=== PATIENT | male | born 1955 | race African-American/Black ===

== ENCOUNTER 2018-07-22 14:45 | Inpatient (IN) | payer OTHER, SELFPAY ==
--- NOTE | 2018-07-22 15:32 | RAD ---
Chest one view HISTORY: Chest pain. Comparison 11/07/2017. FINDINGS: Cardiac silhouette is magnified by projection. Pulmonary vasculature is unremarkable. Media stinum is. No lobar consolidation or evidence of pneumothorax. child monitor leads overlie the chest. IMPRESSION: No active cardiac abnormalities are demonstrated.
[2018-07-22 15:40] LABS: #Basophils 0.1 thou/uL (0.0-0.2); #Eosinphils 0.2 thou/uL (0.0-0.7); #Lymphocytes 2.1 thou/uL (1.20-3.40); #Monocytes 0.8 thou/uL (0.11-0.59); #Neutrophils 7.2 thou/uL (1.40-6.50); %Basophils 0.9 % (0.0-1.0); %Eosinophils 1.8 % (0.0-10.0); %Neutrophils 69.3 % (42.0-75.0); Hemoglobin 8.8 g/dL (14.0-18.0); Mean Corpuscular HGB CONC 32.8 g/dL (32.0-36.0); Mean Corpuscular Hemoglobin 28.7 pg (27.0-31.0); Mean Corpuscular Volume 87.6 fL (78.0-98.0); Mean Platelet Volume 8.7 fL (7.4-10.4); Platelet Count 182 thou/uL (130-400); RBC Distribution Width 19.8 % (11.5-14.5); Red Blood Cell (RBC) Count 3.08 mill/uL (4.70-6.10); White Blood Cell (WBC) Count 10.4 thou/uL (4.8-10.8)
[2018-07-22 15:54] LABS: ALT (SGPT) 11 U/L (8-55); AST (SGOT) 15 U/L (5-34); Albumin 3.9 g/dL (3.4-4.8); Alkaline Phosphatase 45 U/L (40-150); Anion Gap 16 mmol/L (10-20); Anisocytosis SLIGHT = 6-15 cells (100X) (0-5/hpf); BUN (Urea Nitrogen) 74 mg/dL (8.4-25.7); Bilirubin, Total 0.6 mg/dL (0.2-1.2); CK (CPK) 98 U/L (30-200); Calc. Creatinine Clearance 0 mL/min (70-130); Calcium 9.1 mg/dL (7.8-10.44); Carbon Dioxide 18 mmol/L (23-31); Chloride 110 mmol/L (98-107); Estimated GFR-MDRD 37; Globulin 2.3 g/dL (2.4-3.5); Glucose 129 mg/dL (80-115); MDiff Complete? YES; Platelet Morphology Comment Appears Adequate; Polychromasia SLIGHT = 2-3 cells (100X) (0-2/hpf); Potassium 4.4 mmol/L (3.5-5.1); Protein, Total 6.2 g/dL (5.8-8.1); Sodium 140 mmol/L (136-145)
[2018-07-22] MEDS ORDERED: Pantoprazole 40 MG VIAL ONE (17:00)
[2018-07-22 17:20] LABS: INR-International Normal Ratio 1.1; PTT 29.5 SEC (22.9-36.1)
[2018-07-22 17:44] LABS: Iron 96 ug/dL (65-175); Iron Binding Capacity, Total 304 mcg/dL (261-462)
[2018-07-22] MEDS ORDERED: Acetaminophen 325 MG TAB PO PRN (17:47)
[2018-07-22] MEDS ORDERED: Acetaminophen 650 MG Suppository PR PRN (17:47)
[2018-07-22] MEDS ORDERED: Bisacodyl 5 MG TAB PO PRN (17:47)
[2018-07-22] MEDS ORDERED: Sodium Chloride 0.9% 1,000 ML IV SCH (18:00)
[2018-07-22] MEDS ORDERED: hydrALAZINE 20 MG/ML VIAL SLOW IVP PRN (18:10)
--- NOTE | 2018-07-22 18:31 | HP ---
PRIMARY CARE PROVIDER: Dr. Kelvin Key in [place], [place]. CHIEF COMPLAINT: Black stools. HISTORY OF PRESENT ILLNESS: Mr. Simpson is a pleasant 62-year-old gentleman, who was seen at [facility] on July 22, 2018. He was hospitalized at this facility from November 07 to [address]-elevation myocardial infarction treated with percutaneous transluminal coronary angioplasty and Aggrastat. He reports that he was doing well until 3 days ago. At that time, he started having nausea and vomiting. He reports multiple episodes of nausea, 1 or 2 episodes of vomiting and mostly retching. This continued over the next couple of days. Three days ago, he also started having black stools. He describes the stools as black and dry. He has been mostly drinking water over the last couple of days. He denies any current abdominal pain, but reports that he had some epigastric discomfort, which has since resolved. He also reports lightheadedness when he tries to stand up. He called 911 because of ongoing symptoms today. He reports that when the EMS got there, he started having retrosternal burning sensation. He describes it as 5/10 in intensity, nonradiating, not accompanied by shortness of breath, but accompanied by nausea and lightheadedness. It lasted approximately 20 minutes. It improved after he took 2 doses of nitroglycerin. REVIEW OF SYSTEMS: All other systems were reviewed and found to be negative. PAST MEDICAL HISTORY: Coronary artery disease, ST elevation myocardial infarction, hypertension, dyslipidemia, and nephrolithiasis. PAST SURGICAL HISTORY: PCI as described above. FAMILY HISTORY: No family history of coronary artery disease. SOCIAL HISTORY: The patient drinks 1 to 2 whiskey drinks a day. He denies any tobacco use or recreational drug use. ALLERGIES: NO KNOWN DRUG ALLERGIES. CURRENT MEDICATIONS: The patient is unable to recall the names of his medications. He reports that he is compliant with his medications, which at the time of discharge from the hospital included, 1. Aspirin 325 mg daily. 2. Plavix 75 mg daily. 3. Atorvastatin 80 mg daily. 4. Metoprolol ER 100 mg daily. 5. Nitroglycerin p.r.n. It is unclear if he is still taking Plavix. PHYSICAL EXAMINATION: GENERAL: On examination, Mr. Simpson is awake and alert, not in acute distress. VITAL SIGNS: Blood pressure is 136/86, pulse 67, respiratory rate 20, and oxygen saturation 99% on room air. He is afebrile. EYES: No scleral icterus. The patient has conjunctival pallor. ENT: Moist mucosal membranes. No oropharyngeal erythema or exudates. NECK: Supple and nontender. Trachea is midline. RESPIRATORY: Accessory muscles of breathing are not active. Chest wall movements are symmetric bilaterally. Lungs are clear to auscultation without wheeze, rhonchi, or crepitations. CARDIOVASCULAR: S1 and S2 are heard, regular. Peripheral pulses palpable. No carotid bruit. No pericardial rub. ABDOMEN: Soft, mild epigastric tenderness. No guarding or rigidity. Bowel sounds heard. No hepatomegaly. No splenomegaly. NEUROLOGIC: Cranial nerves 2 through 12 intact. Deep tendon reflexes 2+. MUSCULOSKELETAL: Power is 5/5 in all 4 extremities. SKIN: No rashes or subcutaneous nodules. LYMPHATIC: No cervical lymphadenopathy. PSYCHIATRIC: Normal mood and normal affect. The patient is oriented to person, place, and time. LABORATORY DATA: Mr. Simpson's labs and investigations were reviewed. I reviewed his electrocardiogram, which shows normal sinus rhythm and no ST changes to suggest an acute coronary syndrome. I also reviewed his chest x-ray, which does not show any pulmonary infiltrates. He has normal white count, normocytic anemia with hemoglobin of 8.8, last known hemoglobin of 14.8 on November 08, 2017, and normal platelet count. INR 1.1. Normal sodium, normal potassium, elevated blood urea nitrogen of 74, elevated creatinine of 2.17, and creatinine was 1.35 on November 09, 2017. Unremarkable liver profile. Normal iron, normal TIBC, and normal troponin I. ASSESSMENT AND PLAN: Mr. Simpson is a pleasant 62-year-old gentleman, who was seen at [facility] on July 22, 2018. His problem list includes: 1. Symptomatic anemia: Mr. Simpson is presenting with symptomatic anemia, most likely secondary to acute blood loss anemia from upper gastrointestinal bleed. He will be admitted to the hospital for further management. 2. Upper gastrointestinal bleed: The patient's hemoglobin and hematocrit will be checked. He will be started on a proton pump inhibitor drip. Gastroenterology Service will be consulted for opinion and help with management. 3. Acute on chronic kidney disease, stage 2. This could be prerenal, since he had a poor oral intake at home over the last few days. We will rehydrate intravenously and recheck renal function. 4. Chest pain: The patient's chest pain is atypical for coronary artery disease. He will be monitored on telemetry. If he has recurrence, we will initiate further workup. 5. Hypertension: We will resume the patient's home medications. Monitor vital signs and titrate antihypertensives as needed. 6. Dyslipidemia: We will continue statin. Many thanks for allowing me to participate in your patient's care. Please feel free to contact me with any questions or concerns. LEVEL OF RISK: High. LEVEL OF COMPLEXITY: High. Job ID: [id number]
[2018-07-22 18:40] LABS: Hemoglobin 9.1 g/dL (14.0-18.0)
[2018-07-22 19:08] LABS: Troponin I 0.015 ng/mL (< 0.028)
[2018-07-22] MEDS: Pantoprazole 80 MG in Sodium Chloride 0.9% 100 ML IVP SCH (20:11)
[2018-07-22 21:58] LABS: Troponin I 0.014 ng/mL (< 0.028)
[2018-07-22 23:14] VITALS: BMI 34.4
[2018-07-23 05:00] LABS: #Basophils 0.1 thou/uL (0.0-0.2); #Eosinphils 0.5 thou/uL (0.0-0.7); #Lymphocytes 3.2 thou/uL (1.20-3.40); #Monocytes 0.8 thou/uL (0.11-0.59); #Neutrophils 4.4 thou/uL (1.40-6.50); %Basophils 1.3 % (0.0-1.0); %Eosinophils 5.1 % (0.0-10.0); %Lymphocytes 35.6 % (21.0-51.0); %Monocytes 9.3 % (0.0-10.0); %Neutrophils 48.8 % (42.0-75.0); Hemoglobin 8.3 g/dL (14.0-18.0); Mean Corpuscular HGB CONC 32.6 g/dL (32.0-36.0); Mean Corpuscular Hemoglobin 29.6 pg (27.0-31.0); Mean Corpuscular Volume 90.6 fL (78.0-98.0); Mean Platelet Volume 8.6 fL (7.4-10.4); Platelet Count 195 thou/uL (130-400); RBC Distribution Width 20.1 % (11.5-14.5); Red Blood Cell (RBC) Count 2.82 mill/uL (4.70-6.10); White Blood Cell (WBC) Count 9.1 thou/uL (4.8-10.8)
[2018-07-23 05:17] LABS: Anion Gap 13 mmol/L (10-20); BUN (Urea Nitrogen) 64 mg/dL (8.4-25.7); Calc. Creatinine Clearance 53 mL/min (70-130); Calcium 9.1 mg/dL (7.8-10.44); Carbon Dioxide 19 mmol/L (23-31); Chloride 111 mmol/L (98-107); Estimated GFR-MDRD 38; Glucose 111 mg/dL (80-115); Potassium 4.4 mmol/L (3.5-5.1); Sodium 139 mmol/L (136-145)
[2018-07-23] MEDS: Pantoprazole 80 MG in Sodium Chloride 0.9% 100 ML IVP SCH ×2 (06:53→17:44)
--- NOTE | 2018-07-23 15:56 | PDOC.PN ---
- Subjective Encounter Start Date: 07/23/18 Encounter Start Time: 08:00 Pt seen for followup re: acute blood loss anemia. - Objective MAR Reviewed: Yes Vital Signs & Weight: Vital Signs (12 hours) Temp Pulse Resp BP Pulse Ox 07/23/18 12:27 97.8 F 82 16 123/51 L 96 07/23/18 08:00 97.8 F 67 16 108/64 99 Weight Weight 240 lb I&O: 07/22/18 07/23/18 07/24/18 06:59 06:59 06:59 Intake Total 480 Balance 480 Result Diagrams: 07/23/18 04:45 07/23/18 04:45 EKG Reviewed by me: Yes (Tele: NSR) Phys Exam - Physical Examination Obese HEENT: moist MMs, sclera anicteric, oral pharynx no lesions, 2+ tonsils Neck: no nodes, no JVD, supple, full ROM Respiratory: clear to auscultation bilateral Cardiovascular: RRR, no rub S1, S2 Gastrointestinal: soft, non-tender, no distention, positive bowel sounds Neurological: moves all 4 limbs Psychiatric: normal affect Dx/Plan (1) Acute blood loss anemia Code(s): D62 - ACUTE POSTHEMORRHAGIC ANEMIA Status: Acute Comment: secondary to UGIB (2) UGIB (upper gastrointestinal bleed) Code(s): K92.2 - GASTROINTESTINAL HEMORRHAGE, UNSPECIFIED Status: Acute Comment: hemoglobin stable. Continue PPI drip. Await GI consult. (3) Acute renal failure superimposed on stage 2 chronic kidney disease Code(s): N17.9 - ACUTE KIDNEY FAILURE, UNSPECIFIED; N18.2 - CHRONIC KIDNEY DISEASE, STAGE 2 (MILD) Status: Acute Comment: continue IV fluids (4) CAD (coronary artery disease) Code(s): I25.10 - ATHSCL HEART DISEASE OF [place] CORONARY ARTERY W/O ANG PCTRS Status: Chronic Comment: aspirin and Plavix on hold due to UGIB (5) HTN (hypertension) Code(s): I10 - ESSENTIAL (PRIMARY) HYPERTENSION Status: Chronic Comment: controlled - Plan * . Review of Systems - Review of Systems Constitutional: negative: fever, chills, sweats, weakness, malaise Cardiovascular: negative: chest pain, palpitations, orthopnea, paroxysmal nocturnal dyspnea, edema, light headedness Gastrointestinal: Melena. negative: Nausea, Vomiting, Abdominal Pain, Diarrhea , Constipation, Hematochezia Genitourinary: negative: Dysuria, Frequency, Incontinence, Hematuria, Retention Skin: negative: Rash, Lesions, [place], Bruising - Medications/Allergies Allergies/Adverse Reactions: Allergies Allergy/AdvReac Type Severity Reaction Status Date / Time No Known Allergies Allergy Unverified 11/07/17 04:41 Medications: Current Medications Acetaminophen (Tylenol) 650 mg PO Q4H PRN PRN Reason: Headache/Fever/Mild Pain (1-3) Acetaminophen (Tylenol) 650 mg NM Q4H PRN PRN Reason: Headache/Fever/Mild Pain (1-3) Bisacodyl (Dulcolax) 10 mg PO DAILYPRN PRN PRN Reason: Constipation Hydralazine HCl (Apresoline) 10 mg SLOW IVP Q6H PRN PRN Reason: SBP Greater Than 170 Pantoprazole Sodium 80 mg/ (Sodium Chloride) 100 mls @ 10 mls/hr IVP [facility] Last Admin: 07/23/18 06:53 Dose: 100 mls Sodium Chloride (Flush - Normal Saline) 10 ml IVF Q12HR [facility] Last Admin: 07/23/18 08:59 Dose: Not Given Sodium Chloride (Flush - Normal Saline) 10 ml IVF PRN PRN PRN Reason: Saline Flush
[2018-07-23] MEDS ORDERED: Nitroglycerin 0.4 MG TAB (25 Tab Bottle) SL PRN (15:57)
[2018-07-23] MEDS: Sodium Chloride 0.9% 1,000 ML IV SCH (16:57)
[2018-07-23] MEDS: Atorvastatin Calcium 40 MG TAB PO SCH (19:53)
[2018-07-24] MEDS: Pantoprazole 80 MG in Sodium Chloride 0.9% 100 ML IVP SCH (03:42)
[2018-07-24] MEDS: Sodium Chloride 0.9% 1,000 ML IV SCH ×2 (05:19→20:32)
[2018-07-24 05:45] LABS: #Basophils 0.1 thou/uL (0.0-0.2); #Eosinphils 0.5 thou/uL (0.0-0.7); #Lymphocytes 2.8 thou/uL (1.20-3.40); #Monocytes 0.9 thou/uL (0.11-0.59); #Neutrophils 5.2 thou/uL (1.40-6.50); %Basophils 0.8 % (0.0-1.0); %Eosinophils 5.2 % (0.0-10.0); %Lymphocytes 29.7 % (21.0-51.0); %Monocytes 9.2 % (0.0-10.0); %Neutrophils 55.1 % (42.0-75.0); Hemoglobin 7.1 g/dL (14.0-18.0); Mean Corpuscular Hemoglobin 29.5 pg (27.0-31.0); Mean Corpuscular Volume 89.5 fL (78.0-98.0); Mean Platelet Volume 8.9 fL (7.4-10.4); Platelet Count 179 thou/uL (130-400); RBC Distribution Width 20.1 % (11.5-14.5); Red Blood Cell (RBC) Count 2.42 mill/uL (4.70-6.10); White Blood Cell (WBC) Count 9.5 thou/uL (4.8-10.8)
[2018-07-24 06:02] LABS: Anion Gap 12 mmol/L (10-20); BUN (Urea Nitrogen) 46 mg/dL (8.4-25.7); Calc. Creatinine Clearance 53 mL/min (70-130); Calcium 8.7 mg/dL (7.8-10.44); Carbon Dioxide 23 mmol/L (23-31); Chloride 108 mmol/L (98-107); Estimated GFR-MDRD 38; Glucose 121 mg/dL (80-115); Potassium 4.2 mmol/L (3.5-5.1); Sodium 139 mmol/L (136-145)
[2018-07-24] MEDS ORDERED: Promethazine HCl 25 MG/ML VIAL SLOW IVP PRN (08:44)
[2018-07-24] MEDS ORDERED: Ondansetron HCl/PF 4 MG/2 ML Vial IVP PRN (08:44)
[2018-07-24] MEDS ORDERED: Promethazine HCl 25 MG/ML VIAL IM PRN (08:44)
--- NOTE | 2018-07-24 08:55 | CON ---
DATE OF CONSULTATION: 07/23/2018 REASON FOR CONSULTATION: GI bleeding, anemia due to blood loss. HISTORY OF PRESENT ILLNESS: Mr. Baldomero Simpson is a very pleasant 62-year-old male who has had a microinfarction in November of 2017. He underwent coronary angioplasty and was placed on aspirin and Plavix. This was done in November of 2017. The patient has done well since angioplasty. The patient has been placed on aspirin and Plavix after his angioplasty. The patient developed nausea, dysphagia, retching and vomiting with bleeding over 2 to 3 days ago. Subsequently started having black tarry stools 3 days ago. This stools were tarry. He had multiple loose stools. He also felt dizzy transiently. He has no abdominal pain. There is no prior history of peptic ulcer. He tells me six months ago, an episode of black tarry stool which lasted for 2 or 3 days, but he did not see a doctor for it. The stools became normal subsequently he totally ignored it. The patient has no prior history of peptic ulcer. He denies any indigestion, heartburn, dyspepsia, abdominal discomfort, etc. The patient was found to have anemia on admission. Blood count has been stable from admission, running around 8.3 and 8.2. The patient had one black tarry stool this morning. I saw him this morning around 11:30 and I saw him again office under 6:00 in the evening. He tells me he has had normal since one stool this morning. He is tolerating a diet. He has no relevant history. He has been on aspirin and Plavix since his angioplasty in November of 2017. The Plavix is on hold at the present time. The patient has had a colonoscopy several years ago and was told to be negative. He has normal bowel movements, and he has no prior history of any rectal bleeding, etc. He felt lightheaded and dizzy when he stood up at the time of admission. Since that time, he is actually ambulating in the room and is not feeling dizzy anymore. He has no relevant history. MEDICAL ILLNESSES: 1. Status post myocardial infarction in November of 2017, status angioplasty. 2. Hypertension. 3. Hyperlipidemia. 4. Nephrolithiasis. SURGERIES: 1. Angioplasty in the past. 2. History of colonoscopy several years ago. SOCIAL HISTORY: The patient drinks alcohol 1-2 two drinks every day. No history of smoking or any drug abuse. ALLERGIES: NONE. MEDICATIONS: Include: 1. Aspirin. 2. Plavix. 3. Atorvastatin. 4. Metoprolol. 5. Nitroglycerin p.r.n. FAMILY HISTORY: Unremarkable. No family history of cancer, stroke, or heart disease. REVIEW OF SYSTEMS: CONSTITUTIONAL: No history of weight loss, decreased energy level, and he has good exercise tolerance. No fever or any night sweats. HEENT: Head, no chronic headache, no TIA. No sclerae icterus. Eyes: No impaired vision. No diplopia. ENT unremarkable. NECK: No stiffness or pain. RESPIRATORY: No history of chronic coughing, hemoptysis, dyspnea. CARDIOVASCULAR: No chest pain, no palpitation. No dyspnea, orthopnea, or PND. GI: As in history of present illness. : No dysuria, hematuria or frequent urination. MUSCULOSKELETAL: Unremarkable. ENDOCRINE: Unremarkable. HEMATOLOGICAL: Unremarkable. NEUROPSYCHIATRY: Unremarkable. PHYSICAL EXAMINATION: GENERAL: The patient is a very pleasant male, appears very comfortable. He is awake, alert, oriented to time, place, and person. VITAL SIGNS: His pulse is 67, blood pressure 137/70. HEENT: Conjunctivae clear. NECK: Supple. No adenitis or . CARDIOVASCULAR : 1st and 2nd heart sounds normal. LUNGS: Clear to auscultation. ABDOMEN: Soft. Abdomen is nondistended. Abdomen is nontender. No organomegaly or masses. Bowel sounds normal. EXTREMITIES: No edema. LABORATORY DATA: On admission on 07/23/2018, WBC 10,400, hemoglobin 8.8, hematocrit 26.9. He has had did not change at present. Hemoglobin was 9.1 yesterday evening and today 8.3. Hematocrit is 25.6, platelet count 195,000, polymorphs 48, lymphocytes 35, monocytes 9. Serum chemistry, elevation of BUN most likely from bleeding. Sodium 140, potassium 4.4, chloride 110, bicarb 18, BUN is 74, dropping to 64 after hydration, creatinine is 2.17 dropping to 2.15, glucose 111. Liver function tests normal. Albumin is 3.9. IMPRESSION: 1. A 62-year-old male with black tarry stool, nausea, vomiting. No history of hematemesis. Since admission, he is stable. Blood pressure is stable and has had only one stool this morning and had normal stool. His blood count is holding up well. There is slight drop in blood count because of dehydration. 2. Elevated BUN and creatinine, mostly from the GI bleeding. He has lost some blood which can make the BUN go up. It is also positive for underlying chronic kidney disease. 3. Hypertension. 4. Hyperlipidemia. 5. Coronary artery disease status post angioplasty. RECOMMENDATIONS: 1. Continue IV PPI. 2. Hold Plavix. 3. EGD tomorrow morning as it appears he has stopped bleeding. I will plan for EGD tomorrow morning and make further recommendations. Job ID: [id number]
[2018-07-24] MEDS: Amlodipine 10 MG TAB PO SCH (11:08)
[2018-07-24] MEDS ORDERED: PROPOFOL 200 MG/20 ML VIAL ONE (15:23)
--- NOTE | 2018-07-24 16:06 | PDOC.PN ---
- Subjective Encounter Start Date: 07/24/18 Encounter Start Time: 16:04 Pt seen for followup re: GI bleed. Feels well, no complaints. - Objective Vital Signs & Weight: Vital Signs (12 hours) Temp Pulse Pulse Resp BP BP Pulse Ox 07/24/18 12:00 97.6 F 64 16 126/73 99 07/24/18 11:35 97.5 F L 70 16 123/68 97 07/24/18 11:08 68 07/24/18 10:20 68 18 142/83 H 100 07/24/18 07:19 98.1 F 76 14 119/59 L 95 Weight Weight 236 lb 2 oz I&O: 07/23/18 07/24/18 07/25/18 06:59 06:59 06:59 Intake Total 2680 240 Output Total 2200 Balance 480 240 Result Diagrams: 07/24/18 05:11 07/24/18 05:11 Phys Exam - Physical Examination Obesity HEENT: moist MMs Neck: supple Respiratory: clear to auscultation bilateral Cardiovascular: RRR Gastrointestinal: soft Neurological: moves all 4 limbs Psychiatric: normal affect Dx/Plan (1) Acute blood loss anemia Code(s): D62 - ACUTE POSTHEMORRHAGIC ANEMIA Status: Acute Comment: secondary to UGIB, s/p EGD today (2) UGIB (upper gastrointestinal bleed) Code(s): K92.2 - GASTROINTESTINAL HEMORRHAGE, UNSPECIFIED Status: Acute Comment: hemoglobin decreased today, transfuse one unit pRBC. (3) Acute renal failure superimposed on stage 2 chronic kidney disease Code(s): N17.9 - ACUTE KIDNEY FAILURE, UNSPECIFIED; N18.2 - CHRONIC KIDNEY DISEASE, STAGE 2 (MILD) Status: Acute Comment: continue IV fluids, recheck creatinine (4) CAD (coronary artery disease) Code(s): I25.10 - ATHSCL HEART DISEASE OF [place] CORONARY ARTERY W/O ANG PCTRS Status: Chronic Comment: aspirin and Plavix on hold (5) HTN (hypertension) Code(s): I10 - ESSENTIAL (PRIMARY) HYPERTENSION Status: Chronic Comment: controlled - Plan * . Review of Systems - Review of Systems Cardiovascular: negative: chest pain, palpitations, orthopnea, paroxysmal nocturnal dyspnea, edema, light headedness Gastrointestinal: negative: Nausea, Vomiting, Abdominal Pain, Diarrhea, Constipation, Melena, Hematochezia - Medications/Allergies Allergies/Adverse Reactions: Allergies Allergy/AdvReac Type Severity Reaction Status Date / Time No Known Allergies Allergy Unverified 11/07/17 04:41 Medications: Current Medications Acetaminophen (Tylenol) 650 mg PO Q4H PRN PRN Reason: Headache/Fever/Mild Pain (1-3) Acetaminophen (Tylenol) 650 mg [place] Q4H PRN PRN Reason: Headache/Fever/Mild Pain (1-3) Amlodipine Besylate (Norvasc) 10 mg PO DAILY [facility] Last Admin: 07/24/18 11:08 Dose: 10 mg Atorvastatin Calcium (Lipitor) 80 mg PO HS [facility] Last Admin: 07/23/18 19:53 Dose: 80 mg Bisacodyl (Dulcolax) 10 mg PO DAILYPRN PRN PRN Reason: Constipation Hydralazine HCl (Apresoline) 10 mg SLOW IVP Q6H PRN PRN Reason: SBP Greater Than 170 Sodium Chloride (Normal Saline 0.9%) 1,000 mls @ 70 mls/hr IV .[id number] [facility] Last Admin: 07/24/18 05:19 Dose: 1,000 mls Metoprolol Succinate (Toprol Xl) 100 mg PO DAILY [facility] Last Admin: 07/24/18 11:08 Dose: 100 mg Nitroglycerin (Nitrostat) 0.4 mg SL Q5MIN PRN PRN Reason: Chest Pain Pantoprazole Sodium (Protonix) 40 mg PO DAILY [facility] Sodium Chloride (Flush - Normal Saline) 10 ml IVF Q12HR [facility] Last Admin: 07/24/18 10:37 Dose: Not Given Sodium Chloride (Flush - Normal Saline) 10 ml IVF PRN PRN PRN Reason: Saline Flush
--- NOTE | 2018-07-24 16:37 | OP ---
DATE OF PROCEDURE: 07/24/2018 PROCEDURE PERFORMED: Esophagogastroduodenoscopy. PREOPERATIVE DIAGNOSES: A 62-year-old male with black tarry stool for 3 days, nausea, and dyspepsia. The patient is undergoing esophagogastroduodenoscopy. POSTOPERATIVE DIAGNOSES: 1. Normal esophageal mucosa and no esophagitis seen. 2. Large polypoid lesion of the gastric antrum with erythematous mucosa, nonbleeding, not biopsied due to the patient being on Plavix. 3. Antral gastritis with shallow ulceration. 4. Focal gastritis with erosion of the gastric body. 5. Normal duodenum. DESCRIPTION OF PROCEDURE: The patient was placed on his left lateral position and was given sedation by Anesthesia Department. A Pentax video gastroscope under direct vision was passed down the oropharynx to the GE junction into the stomach and subsequently into the descending duodenum. The esophageal mucosa appeared normal completely. No esophagitis seen. The GE junction had no lesion. Retroflexion failed to show any pathology in fundus and cardia. In the proximal gastric body, there was area of focal edema and erythema with erosion. No evidence of active bleeding seen. The gastric antrum showed a large sessile polypoid area with markedly erythematous mucosa. The GE junction appeared benign and not biopsied. There was antral gastritis and also shallow ulceration. The duodenal bulb and descending duodenum had no pathology. The stomach was decompressed and the scope was removed. RECOMMENDATIONS: 1. Heart healthy diet. 2. Follow up H and H. 3. Transfuse p.r.n. 4. The patient will probably need a repeat EGD in the near future after he can stop the Plavix for 5 days. We will also plan for a colonoscopy at same time. Job ID: [id number]
[2018-07-24] MEDS: Atorvastatin Calcium 40 MG TAB PO SCH (20:31)
[2018-07-25 08:19] LABS: Anion Gap 10 mmol/L (10-20); BUN (Urea Nitrogen) 28 mg/dL (8.4-25.7); Calc. Creatinine Clearance 57 mL/min (70-130); Calcium 8.9 mg/dL (7.8-10.44); Carbon Dioxide 24 mmol/L (23-31); Chloride 110 mmol/L (98-107); Estimated GFR-MDRD 42; Glucose 108 mg/dL (80-115); Potassium 4.4 mmol/L (3.5-5.1); Sodium 140 mmol/L (136-145)
[2018-07-25 08:27] LABS: #Basophils 0.1 thou/uL (0.0-0.2); #Eosinphils 0.5 thou/uL (0.0-0.7); #Lymphocytes 2.9 thou/uL (1.20-3.40); #Monocytes 0.8 thou/uL (0.11-0.59); #Neutrophils 4.2 thou/uL (1.40-6.50); %Eosinophils 5.7 % (0.0-10.0); %Lymphocytes 34.1 % (21.0-51.0); %Monocytes 8.9 % (0.0-10.0); %Neutrophils 50.4 % (42.0-75.0); Hemoglobin 8.6 g/dL (14.0-18.0); Mean Corpuscular HGB CONC 33.6 g/dL (32.0-36.0); Mean Corpuscular Volume 92.3 fL (78.0-98.0); Mean Platelet Volume 8.6 fL (7.4-10.4); Platelet Count 188 thou/uL (130-400); RBC Distribution Width 19.9 % (11.5-14.5); Red Blood Cell (RBC) Count 2.78 mill/uL (4.70-6.10); White Blood Cell (WBC) Count 8.4 thou/uL (4.8-10.8)
[2018-07-25] MEDS: Amlodipine 10 MG TAB PO SCH (08:55)
[2018-07-25] MEDS: Sodium Chloride 0.9% 1,000 ML IV SCH (10:28)
--- NOTE | 2018-07-25 11:35 | PDOC.PN ---
- Subjective Encounter Start Date: 07/25/18 Encounter Start Time: 10:40 Subjective: no abd pain or bleeding per rectum -: no sob or chest pain - Objective MAR Reviewed: Yes Vital Signs & Weight: Vital Signs (12 hours) Temp Pulse Resp BP BP Pulse Ox 07/25/18 08:55 56 L 107/57 L 07/25/18 08:50 97.9 F 65 16 107/57 L 97 07/25/18 03:50 97.7 F 59 L 16 101/50 L 99 Weight Weight 236 lb I&O: 07/24/18 07/25/18 07/26/18 06:59 06:59 06:59 Intake Total 2680 3170 Output Total 2200 2125 Balance 480 1045 Result Diagrams: 07/25/18 07:45 07/25/18 07:45 Phys Exam - Physical Examination HEENT: PERRLA, moist MMs Neck: no JVD, supple Respiratory: no wheezing, no rales Cardiovascular: RRR, no significant murmur Gastrointestinal: soft, non-tender, positive bowel sounds Musculoskeletal: no edema, pulses present Neurological: non-focal, moves all 4 limbs Psychiatric: normal affect, A&O x 3 Dx/Plan (1) UGIB (upper gastrointestinal bleed) Code(s): K92.2 - GASTROINTESTINAL HEMORRHAGE, UNSPECIFIED Status: Acute (2) Acute blood loss anemia Code(s): D62 - ACUTE POSTHEMORRHAGIC ANEMIA Status: Acute Comment: secondary to UGIB? (3) MARLEEN (acute kidney injury) Code(s): N17.9 - ACUTE KIDNEY FAILURE, UNSPECIFIED Status: Acute (4) CKD (chronic kidney disease) stage 3, GFR 30-59 ml/min Code(s): N18.3 - CHRONIC KIDNEY DISEASE, STAGE 3 (MODERATE) Status: Chronic (5) CAD (coronary artery disease) Code(s): I25.10 - ATHSCL HEART DISEASE OF [place] CORONARY ARTERY W/O ANG PCTRS Status: Chronic Qualifiers: Coronary Disease-Associated Artery/Lesion type: [place] artery [place] vs. transplanted heart: [place] heart Associated angina: without angina Qualified Code(s): I25.10 - Atherosclerotic heart disease of [place] coronary artery without angina pectoris Comment: aspirin and Plavix on hold (6) HTN (hypertension) Code(s): I10 - ESSENTIAL (PRIMARY) HYPERTENSION Status: Chronic Qualifiers: Hypertension type: essential hypertension Qualified Code(s): I10 - Essential (primary) hypertension Comment: controlled - Plan h/h is stable -: renal function is slowly trending down to baseline -: will d/w , likely dc home, to have repeat egd in 1 wk -: continue protonix, asp, norvasc, toprol xl -: hold plavix till repeat egd, has large polypoid mass in antrum * . Review of Systems - Medications/Allergies Allergies/Adverse Reactions: Allergies Allergy/AdvReac Type Severity Reaction Status Date / Time No Known Allergies Allergy Unverified 11/07/17 04:41 Medications: Current Medications Acetaminophen (Tylenol) 650 mg PO Q4H PRN PRN Reason: Headache/Fever/Mild Pain (1-3) Acetaminophen (Tylenol) 650 mg [place] Q4H PRN PRN Reason: Headache/Fever/Mild Pain (1-3) Amlodipine Besylate (Norvasc) 10 mg PO DAILY [facility] Last Admin: 07/25/18 08:55 Dose: Not Given Atorvastatin Calcium (Lipitor) 80 mg PO HS [facility] Last Admin: 07/24/18 20:31 Dose: 80 mg Bisacodyl (Dulcolax) 10 mg PO DAILYPRN PRN PRN Reason: Constipation Hydralazine HCl (Apresoline) 10 mg SLOW IVP Q6H PRN PRN Reason: SBP Greater Than 170 Metoprolol Succinate (Toprol Xl) 100 mg PO DAILY [facility] Last Admin: 07/25/18 08:55 Dose: Not Given Nitroglycerin (Nitrostat) 0.4 mg SL Q5MIN PRN PRN Reason: Chest Pain Pantoprazole Sodium (Protonix) 40 mg PO DAILY [facility] Last Admin: 07/25/18 08:53 Dose: 40 mg Sodium Chloride (Flush - Normal Saline) 10 ml IVF Q12HR [facility] Last Admin: 07/25/18 08:55 Dose: Not Given Sodium Chloride (Flush - Normal Saline) 10 ml IVF PRN PRN PRN Reason: Saline Flush
[2018-07-25 12:16] VITALS: BP 124/58; TEMP 98.2
--- NOTE | 2018-07-25 14:19 | DIS ---
DATE OF ADMISSION: 07/22/2018 DATE OF DISCHARGE: 07/25/2018 PRIMARY DISCHARGE DIAGNOSES: Gastrointestinal bleed, likely upper acute blood loss anemia; acute kidney injury; history of chronic kidney disease, stage 3; coronary artery disease; hypertension. PROCEDURES DONE DURING HOSPITALIZATION: EGD done on 07/24/2018, by Dr. Luna, showed large polypoid lesion of the gastric antrum with erythematous mucosa, nonbleeding. This was not biopsied due to patient being on Plavix. Antral gastritis with shallow ulceration. Focal gastritis with erosion of the gastric body, normal duodenum. LABORATORY DATA: Discharge hemoglobin and hematocrit 8.6 and 25, platelet count 188. INR 1.1. Admitting BUN was 74, discharge BUN of 28. Admitting creatinine of 2.17, discharge creatinine 1.97. Troponin x3 negative. DISCHARGE MEDICATIONS: 1. Norvasc 10 mg daily. 2. Aspirin 81 mg daily. 3. Lipitor 80 mg p.o. at bedtime. 4. Plavix 75 mg to be started after five days. 5. Toprol-XL 100 mg p.o. daily. 6. Protonix 40 mg p.o. daily. 7. Lipitor 80 mg p.o. at bedtime. ALLERGIES: NO KNOWN DRUG ALLERGIES. DISCHARGE PLAN: The patient to follow up with primary care physician in 1 week. He also needs to follow up with Dr. Luna in 2 to 3 weeks. BRIEF COURSE DURING HOSPITALIZATION: The patient initially came to emergency room on the with complaints of black stools. He has had prior history of inferolateral ST-elevation AL and had an intervention done for the same in November of 2017. In view of this history, the patient was admitted to telemetry. The patient received 1 unit of packed cell during his stay here. He was on Protonix drip. He was evaluated by Dr. Luna for Gastroenterology. The patient did not have any active bleeding, but although he has findings as described above. He will require repeat upper endoscopy and colonoscopy once he can be safely off Plavix for at least 5 days. The patient is wanting to get back on Medicare, and to follow up with Dr. Luna. His serial hemoglobin and hematocrit remained stable. He is ambulating well. He is wanting to go home today. The patient has been advised to continue aspirin at 81 mg daily for now and start Plavix after five days. Also, his systolic blood pressure is around 100, and he has been advised not to take Norvasc if it drops any further. He is advised to check blood pressure and pulse twice daily and record for 10 days to follow up with his primary care physician. Please see a [id number] documentation on [facility] for the day of discharge. Job ID: [id number]
== END 2018-07-25 14:01 | disposition home or self-care (01) | DRG 378 ==
LOC: ERS 14:45 → 2NO 17:13
PROVIDERS: ADMIT Internal Medicine; ATTEND Internal Medicine
PROC: 0DJ08ZZ Inspection of Upper Intestinal Tract, Via Natural or Artificial Opening Endoscopic (ICD-10-PCS; principal; 2018-07-24)
PROC: 30233N1 Transfusion of Nonautologous Red Blood Cells into Peripheral Vein, Percutaneous Approach (ICD-10-PCS; 2018-07-24)
DX: K29.71 Gastritis, unspecified, with bleeding (principal); D62 Acute posthemorrhagic anemia; N17.9 Acute kidney failure, unspecified; K25.4 Chronic or unspecified gastric ulcer with hemorrhage; I25.10 Atherosclerotic heart disease of native coronary artery without angina pectoris; E78.5 Hyperlipidemia, unspecified; I12.9 Hypertensive chronic kidney disease with stage 1 through stage 4 chronic kidney disease, or unspecified chronic kidney disease; K63.5 Polyp of colon; N18.3 Chronic kidney disease, stage 3 (moderate); Z79.01 Long term (current) use of anticoagulants; I25.2 Old myocardial infarction; Z79.82 Long term (current) use of aspirin; Z79.899 Other long term (current) drug therapy
CPT/HCPCS: 36415; 36430; 71045; 80048; 80053; 82274; 82550; 82728; 83540; 83550; 84484; 85025; 85610; 85730; 86850; 86900; 86901; 93005; 96374; C9113; J2704; J3490; P9016

== ENCOUNTER 2020-09-03 10:44 | Emergency (ER) | payer MEDICARE ==
[2020-09-03] MEDS ORDERED: Lidocaine 1% (PF) 30 ML VIAL ONE (12:52)
[2020-09-03] MEDS ORDERED: Colchicine 0.6 MG TAB PO SCH (13:15)
[2020-09-03] MEDS ORDERED: Ketorolac Tromethamine 30 MG/ML VIAL ONE (13:25)
[2020-09-03] MEDS ORDERED: Acetaminophen/Codeine 30-300mg Tablet ONE (13:25)
[2020-09-03] MEDS ORDERED: Colchicine 0.6 MG TAB ONE (13:51)
== END 2020-09-03 14:20 | disposition home or self-care (01) ==
LOC: ERS 10:44
DX: M10.9 Gout, unspecified (principal); L73.9 Follicular disorder, unspecified; I10 Essential (primary) hypertension; E78.00 Pure hypercholesterolemia, unspecified; E78.5 Hyperlipidemia, unspecified; I25.2 Old myocardial infarction; Z79.82 Long term (current) use of aspirin; Z79.899 Other long term (current) drug therapy
CPT/HCPCS: 20610; 96372; J1885; J2001

== ENCOUNTER 2021-07-18 15:43 | Emergency (ER) | payer MEDICARE ==
[2021-07-18] MEDS ORDERED: Acetaminophen 500 MG TAB ONE (16:43)
[2021-07-18 17:08] LABS: #Eosinphils 0.3 thou/uL (0.0-0.7); #Monocytes 0.9 thou/uL (0.11-0.59); %Basophils 0.5 % (0.0-1.0); %Eosinophils 3.1 % (0.0-10.0); %Monocytes 11.5 % (0.0-10.0); %Neutrophils 72.9 % (42.0-75.0); Hemoglobin 14.4 g/dL (14.0-18.0); Mean Corpuscular HGB CONC 32.8 g/dL (32.0-36.0); Mean Corpuscular Hemoglobin 31.9 pg (27.0-31.0); Mean Corpuscular Volume 97.4 fL (78.0-98.0); Mean Platelet Volume 8.2 fL (7.4-10.4); Platelet Count 157 thou/uL (130-400); RBC Distribution Width 12.9 % (11.5-14.5); Red Blood Cell (RBC) Count 4.53 mill/uL (4.70-6.10); White Blood Cell (WBC) Count 8.2 thou/uL (4.8-10.8)
[2021-07-18 17:34] LABS: ALT (SGPT) 18 U/L (8-55); AST (SGOT) 24 U/L (5-34); Albumin 3.9 g/dL (3.4-4.8); Alkaline Phosphatase 66 U/L (40-110); Anion Gap 19 mmol/L (10-20); BUN (Urea Nitrogen) 34 mg/dL (8.4-25.7); Bilirubin, Total 0.7 mg/dL (0.2-1.2); Calc. Creatinine Clearance 0 mL/min (70-130); Calcium 8.8 mg/dL (7.8-10.44); Carbon Dioxide 28 mmol/L (23-31); Chloride 98 mmol/L (98-107); Globulin 3.1 g/dL (2.4-3.5); Glucose 109 mg/dL (80-115); Potassium 4.3 mmol/L (3.5-5.1); Sodium 141 mmol/L (136-145)
== END 2021-07-18 19:34 | disposition home or self-care (01) ==
LOC: ERS 15:43
DX: J01.00 Acute maxillary sinusitis, unspecified (principal); I10 Essential (primary) hypertension; I25.2 Old myocardial infarction; E78.5 Hyperlipidemia, unspecified; E78.00 Pure hypercholesterolemia, unspecified; M10.9 Gout, unspecified
CPT/HCPCS: 36415; 80053; 84484; 85025; 93005

== ENCOUNTER 2023-01-18 09:11 | Outpatient (CLI) | payer OTHER, BC ==
[2023-01-18 10:45] LABS: #Basophils 0.1 10x3/uL (0.0-0.2); #Eosinphils 0.4 10x3/uL (0.0-0.5); #Monocytes 0.7 10x3/uL (0.0-1.1); #Neutrophils 3.2 10x3/uL (1.5-8.4); %Eosinophils 6.2 % (0.0-6.0); %Monocytes 9.9 % (0.0-10.0); %Neutrophils 45.6 % (40.0-75.0); Hematocrit 45.7 % (38.8-50.0); Hemoglobin 15.7 g/dL (13.5-17.5); Mean Corpuscular HGB CONC 34.4 g/dL (32.0-36.0); Mean Corpuscular Hemoglobin 30.7 pg (27.0-33.0); Mean Corpuscular Volume 89.3 fl (81.2-95.1); Mean Platelet Volume 10.3 fl (7.4-10.4); Platelet Count 227 10x3/uL (150-450); Red Blood Cell (RBC) Count 5.12 10x6/uL (4.32-5.72)
[2023-01-18 10:56] LABS: Prothrombin Time 10.3 sec (9.5-12.1)
[2023-01-18 11:00] LABS: Anion Gap 16 mmol/L (10-20); BUN (Urea Nitrogen) 20 mg/dL (8.4-25.7); Calc. Creatinine Clearance 0 mL/min (70-130); Calcium 9.7 mg/dL (7.8-10.44); Carbon Dioxide 22 mmol/L (23-31); Chloride 110 mmol/L (98-107); Estimated GFR 36; Glucose 98 mg/dL (80-115); Potassium 4.5 mmol/L (3.5-5.1); Sodium 143 mmol/L (136-145)
== END 2023-01-18 09:12 | disposition home or self-care (01) ==
LOC: LABBT 09:11
PROVIDERS: ATTEND Orthopaedic Surgery
DX: Z01.818 Encounter for other preprocedural examination (principal); M16.11 Unilateral primary osteoarthritis, right hip
CPT/HCPCS: 80048; 85025; 85610; 87081; 93005; 93010

== ENCOUNTER 2023-01-23 05:34 | Observation (INO) | payer OTHER, BC ==
[2023-01-18 09:51] VITALS: BMI 36.1
[2023-01-23] MEDS ORDERED: Bupivacaine 0.25% HCL 30 ML VIAL ONE (06:25)
[2023-01-23] MEDS ORDERED: EPINEPHrine 1 MG/ML VIAL ONE (06:25)
[2023-01-23] MEDS ORDERED: Vancomycin (BATCH) 1.5 GM/300 ML BAG ONE (06:27)
[2023-01-23] MEDS ORDERED: Sodium Chloride 0.9% 100 ML ONE ×2 (06:27→07:02)
[2023-01-23] MEDS ORDERED: Tranexamic Acid 1,000 MG/10 ML VIAL ONE (06:27)
[2023-01-23] MEDS ORDERED: fentaNYL 50 mcg/mL 1 mL Vial ONE ×2 (06:34→10:33)
[2023-01-23] MEDS ORDERED: Midazolam HCl 2 mg/2 ml Vial ONE (06:34)
[2023-01-23] MEDS ORDERED: PROPOFOL 20 ML ONE (06:51)
[2023-01-23] MEDS ORDERED: Rocuronium Bromide 10 MG/ML (10ML VIAL) ONE ×2 (06:52→07:47)
[2023-01-23] MEDS ORDERED: Ondansetron PF 4 MG/2 ML Vial ONE ×2 (06:52→07:47)
[2023-01-23] MEDS ORDERED: Lidocaine 1% PF 5 ML VIAL ONE ×2 (06:52→07:47)
[2023-01-23] MEDS ORDERED: CEFAZOLIN 2 GM VIAL ONE (07:02)
[2023-01-23] MEDS ORDERED: Lidocaine 1.5% w/Epi 1:200K 30 ML VIAL (Epid Use) ONE (07:20)
[2023-01-23] MEDS ORDERED: CEFAZOLIN 2 GM in Sodium Chloride 0.9% 100 ML IVPB SCH (07:30)
[2023-01-23] MEDS ORDERED: Vancomycin (BATCH) 1.5 GM in Premix 1 BAG IVPB SCH (07:30)
[2023-01-23] MEDS ORDERED: Tranexamic Acid 1,000 MG in Sodium Chloride 0.9% 250 ML 250 ML IVPB SCH (07:30)
[2023-01-23] MEDS ORDERED: PHENYLEPHRINE-NS 100 MCG/ML 10 ML SYRINGE ONE ×2 (07:47→07:53)
[2023-01-23] MEDS ORDERED: ePHEDrine Sulfate 50 MG/10 ML VIAL ONE ×2 (07:47→07:54)
[2023-01-23] MEDS ORDERED: PROPOFOL 200 MG/20 ML VIAL ONE (07:47)
[2023-01-23] MEDS ORDERED: Glycopyrrolate 0.2 MG/ML 5 ML SYRINGE ONE ×2 (07:47→07:56)
[2023-01-23] MEDS ORDERED: Naloxone HCl 0.4 mg/ml Vial IV PRN (08:00)
[2023-01-23] MEDS ORDERED: Naloxone HCl 0.4 mg/ml Vial IVP PRN (08:00)
[2023-01-23] MEDS ORDERED: diphenhydrAMINE 50 MG/ML VIAL IVP PRN (08:00)
[2023-01-23] MEDS ORDERED: Ondansetron PF 4 MG/2 ML Vial IVP PRN ×2 (08:00→09:44)
[2023-01-23] MEDS ORDERED: Bupivacaine 0.25% 10 ML VIAL EPIDURAL PRN (08:00)
[2023-01-23] MEDS ORDERED: Promethazine HCl 25 MG SUPP PR PRN (08:00)
[2023-01-23] MEDS ORDERED: Promethazine HCl 25 MG/ML VIAL IM PRN ×3 (08:00→09:49)
[2023-01-23] MEDS ORDERED: Fentanyl/Bupivacaine 100 ML EPIDURAL SCH (08:00)
[2023-01-23] MEDS ORDERED: diphenhydrAMINE 25 MG CAP PO PRN ×2 (08:00→09:44)
[2023-01-23] MEDS ORDERED: traMADol HCl 50 MG TAB PO PRN ×2 (08:00)
[2023-01-23] MEDS ORDERED: Moisturizing Cream (Eucerin) 113 GM JAR TOP PRN (08:00)
[2023-01-23] MEDS ORDERED: HYDROcodone/Acetaminophen 5/325 mg Tablet PO PRN ×2 (08:00)
[2023-01-23] MEDS ORDERED: diphenhydrAMINE 50 MG/ML VIAL IM PRN (08:00)
[2023-01-23] MEDS ORDERED: Ropivacaine 0.2% HCl/PF 20 ML ONE (08:29)
[2023-01-23] MEDS ORDERED: SUGAMMADEX SODIUM 200 MG/2 ML VIAL ONE (09:08)
[2023-01-23] MEDS ORDERED: Morphine 4 MG/ML VIAL SLOW IVP PRN (09:44)
[2023-01-23] MEDS ORDERED: Zolpidem Tartrate 5 MG TAB PO PRN (09:44)
[2023-01-23] MEDS ORDERED: HYDROcodone/Acetaminophen 10/325 mg Tablet PO PRN ×2 (09:44)
[2023-01-23] MEDS ORDERED: Acetaminophen 325 MG TAB PO PRN (09:44)
[2023-01-23] MEDS ORDERED: fentaNYL 50 mcg/mL 1 mL Vial SLOW IVP PRN (09:44)
[2023-01-23] MEDS ORDERED: Morphine 2 MG/ML VIAL SLOW IVP PRN (09:44)
[2023-01-23] MEDS ORDERED: Ondansetron HCl/PF 4 MG/2 ML Vial IVP PRN (09:49)
[2023-01-23] MEDS ORDERED: Gabapentin 100 MG CAP PO PRN ×2 (09:51→10:01)
[2023-01-23] MEDS ORDERED: Nitroglycerin 0.4 MG TAB (25 Tab Bottle) SL PRN (09:51)
[2023-01-23] MEDS ORDERED: fentaNYL PF 100 MCG/2 ML SYRINGE ONE (09:52)
[2023-01-23] MEDS: CEFAZOLIN 2 GM in Sodium Chloride 0.9% 100 ML IVPB SCH ×2 (14:23→21:19)
[2023-01-23] MEDS: Sodium Chloride 0.9% 1,000 ML IV SCH ×2 (14:23→22:03)
[2023-01-23] MEDS: Ketorolac Tromethamine 30 MG/ML VIAL IM SCH ×2 (14:24→22:04)
[2023-01-23] MEDS: Aspirin 81 mg Enteric Coated Tablet PO SCH (21:25)
[2023-01-23] MEDS: Atorvastatin Calcium 40 MG TAB PO SCH (21:26)
[2023-01-23] MEDS: Zolpidem Tartrate 5 MG TAB PO PRN (21:26)
[2023-01-23] MEDS: Senokot S 8.6-50 MG TAB PO SCH (21:26)
[2023-01-23] MEDS: Ferrous Gluconate 324 MG TAB PO SCH (21:26)
[2023-01-24] MEDS: Sodium Chloride 0.9% 1,000 ML IV SCH ×2 (04:26→15:43)
[2023-01-24] MEDS: Ketorolac Tromethamine 30 MG/ML VIAL IM SCH ×3 (05:04→22:02)
[2023-01-24 05:07] LABS: Hematocrit 42.3 % (42.0-52.0); Hemoglobin 13.8 g/dL (14.0-18.0); Mean Corpuscular HGB CONC 32.6 g/dL (32.0-36.0); Mean Corpuscular Hemoglobin 30.5 pg (27.0-31.0); Mean Corpuscular Volume 93.6 fl (78.0-98.0); Mean Platelet Volume 10.5 fL (7.4-10.4); Platelet Count 167 10x3/uL (130-400); RBC Distribution Width 15.3 % (11.5-14.5); Red Blood Cell (RBC) Count 4.52 mill/uL (4.70-6.10); White Blood Cell (WBC) Count 9.2 10x3/uL (4.8-10.8)
[2023-01-24 06:10] LABS: Anion Gap 16 mmol/L (10-20); BUN (Urea Nitrogen) 17 mg/dL (8.4-25.7); Calc. Creatinine Clearance 55 mL/min (70-130); Calcium 9.1 mg/dL (7.8-10.44); Carbon Dioxide 24 mmol/L (23-31); Chloride 104 mmol/L (98-107); Estimated GFR 35; Glucose 99 mg/dL (80-115); Potassium 4.6 mmol/L (3.5-5.1); Sodium 139 mmol/L (136-145)
[2023-01-24] MEDS ORDERED: Potassium Chloride 40 MEQ in Sodium Chloride 0.45% 1,000 ML IV SCH (07:15)
[2023-01-24] MEDS: Ferrous Gluconate 324 MG TAB PO SCH ×2 (09:20→20:43)
[2023-01-24] MEDS: Clopidogrel Bisulfate 75 MG TAB PO SCH (09:20)
[2023-01-24] MEDS: Aspirin 81 mg Enteric Coated Tablet PO SCH ×2 (09:20→20:43)
[2023-01-24] MEDS: Multivitamin W/ Minerals 1 TAB PO SCH (09:20)
[2023-01-24] MEDS: Senokot S 8.6-50 MG TAB PO SCH ×2 (09:20→20:45)
[2023-01-24] MEDS ORDERED: HYDROcodone/Acetaminophen 10/325 mg Tablet PO PRN (09:44)
[2023-01-24] MEDS: 1/2 NS w/KCL 20 mEq 1,000 ML IV SCH ×2 (10:31→19:26)
[2023-01-24] MEDS: HYDROcodone/Acetaminophen 10/325 mg Tablet PO PRN (13:25)
[2023-01-24] MEDS: Zolpidem Tartrate 5 MG TAB PO PRN (20:43)
[2023-01-24] MEDS: Atorvastatin Calcium 40 MG TAB PO SCH (20:43)
[2023-01-25] MEDS: HYDROcodone/Acetaminophen 10/325 mg Tablet PO PRN ×2 (00:12→08:18)
[2023-01-25] MEDS: Sodium Chloride 0.9% 1,000 ML IV SCH (00:16)
[2023-01-25] MEDS: 1/2 NS w/KCL 20 mEq 1,000 ML IV SCH (01:12)
[2023-01-25 05:37] LABS: Mean Corpuscular HGB CONC 31.8 g/dL (32.0-36.0); Mean Corpuscular Hemoglobin 30.7 pg (27.0-31.0); Mean Corpuscular Volume 96.5 fl (78.0-98.0); Mean Platelet Volume 10.4 fL (7.4-10.4); Platelet Count 145 10x3/uL (130-400); RBC Distribution Width 15.2 % (11.5-14.5); Red Blood Cell (RBC) Count 4.56 mill/uL (4.70-6.10); White Blood Cell (WBC) Count 11.9 10x3/uL (4.8-10.8)
[2023-01-25] MEDS: Ketorolac Tromethamine 30 MG/ML VIAL IM SCH (05:38)
[2023-01-25 05:39] LABS: #Basophils 0.1 thou/uL (0.0-0.2); #Eosinphils 0.3 thou/uL (0.0-0.7); #Monocytes 1.8 thou/uL (0.11-0.59); #Neutrophils 7.3 thou/uL (1.40-6.50); %Basophils 0.8 % (0.0-1.0); %Eosinophils 2.6 % (0.0-10.0); %Lymphocytes 19.3 % (21.0-51.0); %Monocytes 15.1 % (0.0-10.0); %Neutrophils 61.8 % (42.0-75.0); Hemoglobin 13.8 g/dL (14.0-18.0); Mean Corpuscular HGB CONC 31.4 g/dL (32.0-36.0); Mean Corpuscular Hemoglobin 30.7 pg (27.0-31.0); Mean Platelet Volume 10.2 fL (7.4-10.4); Platelet Count 124 10x3/uL (130-400); RBC Distribution Width 15.2 % (11.5-14.5); Red Blood Cell (RBC) Count 4.49 mill/uL (4.70-6.10); White Blood Cell (WBC) Count 11.9 10x3/uL (4.8-10.8)
[2023-01-25 05:52] LABS: Anion Gap 13 mmol/L (10-20); BUN (Urea Nitrogen) 18 mg/dL (8.4-25.7); Calc. Creatinine Clearance 56 mL/min (70-130); Calcium 8.6 mg/dL (7.8-10.44); Carbon Dioxide 20 mmol/L (23-31); Chloride 107 mmol/L (98-107); Estimated GFR 35; Glucose 97 mg/dL (80-115); Potassium 4.3 mmol/L (3.5-5.1); Sodium 136 mmol/L (136-145)
[2023-01-25 08:12] VITALS: BP 130/82; TEMP 97.8
[2023-01-25] MEDS: Aspirin 81 mg Enteric Coated Tablet PO SCH (08:15)
[2023-01-25] MEDS: Senokot S 8.6-50 MG TAB PO SCH (08:16)
[2023-01-25] MEDS: Ferrous Gluconate 324 MG TAB PO SCH (08:19)
[2023-01-25] MEDS: Multivitamin W/ Minerals 1 TAB PO SCH (08:19)
[2023-01-25] MEDS: Clopidogrel Bisulfate 75 MG TAB PO SCH (08:19)
== END 2023-01-25 09:20 | disposition home or self-care (01) ==
LOC: SDC 05:34 → SURG A 09:44
PROVIDERS: ADMIT Orthopaedic Surgery; ATTEND Orthopaedic Surgery
PROC: 0SR90JZ Replacement of Right Hip Joint with Synthetic Substitute, Open Approach (ICD-10-PCS; principal; 2023-01-23)
DX: M16.11 Unilateral primary osteoarthritis, right hip (principal); I10 Essential (primary) hypertension; I25.2 Old myocardial infarction; K21.9 Gastro-esophageal reflux disease without esophagitis; Z87.891 Personal history of nicotine dependence; Z79.82 Long term (current) use of aspirin; Z79.899 Other long term (current) drug therapy
CPT/HCPCS: 27130; 72170; 73501; 80048 ×2; 85025; 85027 ×2; 97110; 97116 ×2; 97530; 97535; J3010; J3370; 36415; C1776; J0171; J1200; J2001; J2250; J2405; J2704; J2795; J3480; J3490; S0020

== ENCOUNTER 2023-12-06 15:05 | Outpatient (CLI) | payer OTHER ==
[2023-12-06 16:10] LABS: #Basophils 0.11 10x3/uL (0.0-0.2); %Basophils 2.1 % (0.0-1.0); %Eosinophils 7.2 % (0.0-10.0); %Lymphocytes 40.9 % (21.0-51.0); %Monocytes 12.5 % (0.0-10.0); %Neutrophils 37.1 % (42.0-75.0); Hematocrit 45.3 % (42.0-52.0); Hemoglobin 15.1 g/dL (14.0-18.0); Mean Corpuscular HGB CONC 33.3 g/dL (32.0-36.0); Mean Platelet Volume 10.5 fL (7.4-10.4); Platelet Count 215 10x3/uL (130-400); RBC Distribution Width 14.1 % (11.5-14.5); Red Blood Cell (RBC) Count 4.87 mill/uL (4.70-6.10)
[2023-12-06 16:23] LABS: INR-International Normal Ratio 0.9; Prothrombin Time 12.4 sec (12.0-14.7)
[2023-12-06 16:24] LABS: PTT 32.8 sec (22.9-36.1)
[2023-12-06 16:47] LABS: Anion Gap 12 mmol/L (10-20); BUN (Urea Nitrogen) 26 mg/dL (8.4-25.7); Calc. Creatinine Clearance 0 mL/min (70-130); Calcium 9.4 mg/dL (7.8-10.44); Carbon Dioxide 27 mmol/L (23-31); Chloride 105 mmol/L (98-107); Estimated GFR 35; Glucose 136 mg/dL (80-115); Potassium 5.9 mmol/L (3.5-5.1); Sodium 138 mmol/L (136-145)
[2023-12-06 18:32] LABS: Bacteria/HPF None Seen HPF (None Seen); Bilirubin Negative (Negative); Blood, Urine Negative (Negative); Clarity Clear (Clear); Glucose, Urine (Dipstick) Normal (Negative); Ketone, Urine Negative (Negative); Leukocyte Negative Leu/uL (Negative); Nitrite Negative (Negative); Protein, Urine (Dipstick) 10 mg/dL (Neg-Trace); RBC/HPF 0-3 HPF (0-3); Specific Gravity, Urine 1.015 (1.002-1.036); Squamous Epithelial 0-3 HPF (0-3); Urobilinogen Normal mg/dL (Less than 2); WBC/HPF 0-3 HPF (0-3)
== END 2023-12-06 15:06 | disposition home or self-care (01) ==
LOC: LABBT 15:05
PROVIDERS: ATTEND Urology
DX: Z01.818 Encounter for other preprocedural examination (principal); N20.0 Calculus of kidney; N47.1 Phimosis; J98.4 Other disorders of lung
CPT/HCPCS: 71046; 80048; 81001; 85025; 85610; 85730; 87077; 87086; 87186; 93005; 93010

== ENCOUNTER 2023-12-20 09:44 | Day surgery (SDC) | payer OTHER ==
[2023-12-06 15:22] VITALS: BMI 38.0
[2023-12-20] MEDS ORDERED: fentaNYL PF 100 MCG/2 ML SYRINGE ONE ×2 (12:41→14:20)
[2023-12-20] MEDS ORDERED: Rocuronium Bromide 10 MG/ML (10ML VIAL) ONE (12:41)
[2023-12-20] MEDS ORDERED: Lidocaine 1% PF 5 ML VIAL ONE (12:41)
[2023-12-20] MEDS ORDERED: PROPOFOL 20 ML ONE (12:41)
[2023-12-20] MEDS ORDERED: LevoFLOXacin D5W 500 mg (100 mL) BAG ONE (12:49)
[2023-12-20] MEDS ORDERED: Iopamidol 30 ML ONE (12:52)
[2023-12-20] MEDS ORDERED: ePHEDrine Sulfate 50 MG/10 ML VIAL ONE (13:15)
[2023-12-20] MEDS ORDERED: Glycopyrrolate 0.2 MG/ML 5 ML SYRINGE ONE ×2 (13:18→14:00)
[2023-12-20] MEDS ORDERED: NEOSTIGMINE 3 MG/3 ML SYRINGE ONE (14:00)
[2023-12-20] MEDS ORDERED: Ondansetron PF 4 MG/2 ML Vial ONE (14:17)
[2023-12-20] MEDS ORDERED: SUGAMMADEX SODIUM 200 MG/2 ML VIAL ONE (14:49)
[2023-12-20] MEDS ORDERED: hydrALAZINE 20 MG/ML VIAL ONE (15:34)
[2023-12-20] MEDS ORDERED: Bacitracin 1 PK ONE (16:14)
[2023-12-28 18:09] LABS: CA Oxalate Dihydrate 30 % (.); CA Oxalate Monohydrate 70 % (.); Color Brown (.); Stone Weight 222 mg (.)
== END 2023-12-20 16:50 | disposition home or self-care (01) ==
LOC: SDC 09:44
PROVIDERS: ATTEND Urology
PROC: 0TC68ZZ Extirpation of Matter from Right Ureter, Via Natural or Artificial Opening Endoscopic (ICD-10-PCS; principal; 2023-12-20)
PROC: 0T768DZ Dilation of Right Ureter with Intraluminal Device, Via Natural or Artificial Opening Endoscopic (ICD-10-PCS; 2023-12-20)
PROC: 0VTTXZZ Resection of Prepuce, External Approach (ICD-10-PCS; 2023-12-20)
DX: N47.1 Phimosis (principal); N20.0 Calculus of kidney; N47.7 Other inflammatory diseases of prepuce
CPT/HCPCS: 52356; 54161; 82365; C2617; J0360; J1956; J2405; J2704; Q9967; 88300; 88304

== ENCOUNTER 2024-03-19 09:46 | Outpatient (CLI) | payer MEDICARE | END 2024-03-19 09:47 | disposition home or self-care (01) | LOC: BICULT 09:46 | PROVIDERS: ATTEND Urology | DX: N20.0 Calculus of kidney (principal); N28.1 Cyst of kidney, acquired; N26.1 Atrophy of kidney (terminal) | CPT/HCPCS: 76770 ==